=== PATIENT | male | born 1995 | race Caucasian/White ===

== ENCOUNTER 2018-06-19 10:21 | Emergency (ER) | payer OTHER ==
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
--- NOTE | 2018-06-19 12:44 | RAD REPORT ---
EXAM DESCRIPTION: RAD - Ribs Left - 06/19/2018 12:34 pm CLINICAL HISTORY: Left rib pain FINDINGS: A lucency is present within a mid to lower anterior left rib which may represent a nondisp laced fracture. A pneumothorax is not seen
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
[2018-06-19] MEDS ORDERED: AMOX/K CLAV 875 MG TAB ONE (13:09)
[2018-06-19] MEDS ORDERED: HYDROCODONE/APAP 7.5/325 MG TAB ONE (13:09)
[2018-06-19] MEDS ORDERED: IBUPROFEN 400 MG TAB ONE (13:15)
== END 2018-06-19 13:22 | disposition home or self-care (01) ==
LOC: ER 10:21
DX: S22.32XA Fracture of one rib, left side, initial encounter for closed fracture (principal); S02.2XXA Fracture of nasal bones, initial encounter for closed fracture; Y04.0XXA Assault by unarmed brawl or fight, initial encounter; Y93.9 Activity, unspecified; Y92.149 Unspecified place in prison as the place of occurrence of the external cause; Z88.5 Allergy status to narcotic agent; G40.909 Epilepsy, unspecified, not intractable, without status epilepticus
CPT/HCPCS: 70450; 70486; 76377; 99283